=== PATIENT | male | born 1950 | race Caucasian/White ===

== ENCOUNTER 2020-12-11 11:30 | Inpatient (IN) | payer OTHER, MEDICARE ==
[~2020-12-11] VITALS: Ht 165.1 cm; Wt 73.9 kg
[2020-12-11] MEDS ORDERED: ONDANSETRON HCL 4MG/2ML INJ IV STA (11:55)
[2020-12-11] MEDS ORDERED: MORPHINE SULFATE 4 MG/ML CPJ (NOT FOR IM USE) IV STA (11:55)
[2020-12-11] MEDS ORDERED: SODIUM CHLORIDE 0.9% 1,000 ML IV ONE (12:00)
[2020-12-11 12:29] LABS: HEMATOCRIT. 41.5 % (42.0-52.0); HEMOGLOBIN. 14.1 g/dL (14.0-18.0); MEAN CORPUSCULAR HEMOGLOBIN 32.5 pg (28.0-32.0); MEAN CORPUSCULAR VOLUME 95.6 fL (80.0-94.0); MEAN PLATELET VOLUME 9.9 fl (7.4-10.4); PLATELET 72 x1000/uL (130-400); RED BLOOD CELL COUNT 4.34 mill/uL (4.7-6.1); RED CELL DISTRIBUTION WIDTH 14.1 % (11.6-14.6)
[2020-12-11] MEDS ORDERED: LORAZEPAM 2MG/ML CPJ IV ONE (12:30)
[2020-12-11 12:31] LABS: CHLORIDE 101 mEq/L (98-107)
[2020-12-11 12:33] LABS: INR 1.2
[2020-12-11 12:35] LABS: ETHANOL BLOOD 15 mg/dL
[2020-12-11 13:13] LABS: PLATELET ESTIMATE DECREASED
[2020-12-11] MEDS ORDERED: IOHEXOL-300 100 ML BOTTLE ONE (15:14)
[2020-12-11] MEDS ORDERED: ONDANSETRON HCL 4MG/2ML INJ IV PRN (15:30)
[2020-12-11] MEDS ORDERED: CLONIDINE 0.1MG TABLET PO PRN (15:30)
[2020-12-11] MEDS ORDERED: IPRATROPIUM/ALBUTEROL 0.5-3(2.5)MG/3ML NEB HHN PRN (15:30)
[2020-12-11] MEDS ORDERED: DIPHENHYDRAMINE 50MG/ML VIAL IV PRN (15:30)
[2020-12-11] MEDS ORDERED: MORPHINE SULFATE 2 MG/ML CPJ (NOT FOR IM USE) IV PRN (15:30)
[2020-12-11 15:34] LABS: CLARITY URINE CLEAR (CLEAR); COLOR URINE DARK YELLOW (YELLOW); KETONES URINE 4+ (NEGATIVE); LEUKOCYTE ESTERASE URINE TRACE (NEGATIVE); NITRITE URINE NEGATIVE (NEGATIVE); OCCULT BLOOD URINE NEGATIVE (NEGATIVE); PROTEIN URINE 1+ (NEGATIVE); SPECIFIC GRAVITY URINE 1.061 (1.005-1.030)
[2020-12-11 15:51] LABS: *AMPHETAMINES SCREEN URINE NEGATIVE (NEGATIVE); *BARBITURATES SCREEN URINE NEGATIVE (NEGATIVE); *BENZODIAZEPINES SCREEN URINE NEGATIVE (NEGATIVE); *COCAINE SCREEN URINE NEGATIVE (NEGATIVE); METHADONE URINE SCREEN NEGATIVE (NEGATIVE); OPIATES URINE SCREEN NEGATIVE (NEGATIVE)
[2020-12-11 15:52] LABS: CANNABINOID URINE SCREEN NEGATIVE (NEGATIVE); PHENCYCLIDINE URINE SCREEN NEGATIVE (NEGATIVE)
[2020-12-11] MEDS: PANTOPRAZOLE SODIUM 40 MG/VIAL IV SCH (17:44)
[2020-12-11] MEDS: SODIUM CHLORIDE 0.9% 1,000 ML IV SCH (17:44)
[2020-12-11 19:04] VITALS: BP 134/64
[2020-12-11] MEDS ORDERED: LORAZEPAM 2MG/ML CPJ IV PRN (21:15)
[2020-12-11] MEDS: CHLORDIAZEPOXIDE 25MG CAPSULE PO SCH (21:24)
[2020-12-12] MEDS: SODIUM CHLORIDE 0.9% 1,000 ML IV SCH ×2 (06:17→17:27)
[2020-12-12] MEDS: CHLORDIAZEPOXIDE 25MG CAPSULE PO SCH ×3 (06:17→21:17)
[2020-12-12 06:35] LABS: INR 1.3; PARTIAL THROMBOPLASTIN TIME 28.1 sec (23.4-31.0); PROTHROMBIN TIME 13.9 sec (9.6-11.0)
[2020-12-12 06:37] LABS: BASOPHILS % 0.2 % (0.0-2.0); EOSINOPHILS % 0.4 % (0.0-5.0); HEMATOCRIT. 36.7 % (42.0-52.0); HEMOGLOBIN. 12.4 g/dL (14.0-18.0); LYMPHOCYTES % 20.8 % (20.0-50.0); MEAN CORPUSCULAR HEMOGLOBIN 32.7 pg (28.0-32.0); MEAN CORPUSCULAR VOLUME 96.9 fL (80.0-94.0); MEAN PLATELET VOLUME 10.8 fl (7.4-10.4); MONOCYTES % 10.9 % (2.0-8.0); NEUTROPHILS % 67.7 % (40.0-76.0); RED BLOOD CELL COUNT 3.78 mill/uL (4.7-6.1); RED CELL DISTRIBUTION WIDTH 14.1 % (11.6-14.6)
[2020-12-12 07:04] LABS: HEPATITIS B SURFACE ANTIGEN NEGATIVE
[2020-12-12 07:34] LABS: HEPATITIS A AB IGM NEGATIVE (NEGATIVE)
[2020-12-12 08:00] VITALS: BP 109/72
[2020-12-12] MEDS ORDERED: LORAZEPAM 2MG/ML CPJ IV PRN (08:30)
[2020-12-12] MEDS ORDERED: ACETAMINOPHEN 325MG TABLET PO PRN (08:30)
[2020-12-12 08:52] LABS: CHLORIDE 106 mEq/L (98-107)
[2020-12-12 08:59] LABS: LDL CHOLESTEROL 62 mg/dL (5-100)
[2020-12-12] MEDS: PANTOPRAZOLE SODIUM 40 MG/VIAL IV SCH ×2 (09:00→17:26)
[2020-12-12 09:04] LABS: HDL CHOLESTEROL 75 mg/dL (40-59)
[2020-12-12] MEDS ORDERED: PROPOFOL 200MG/20ML VIAL IV ONE ×2 (09:13→09:32)
[2020-12-12] MEDS ORDERED: LIDOCAINE HCL/PF 1% 10 MG/ML 5ML VIAL ONE (09:14)
[2020-12-12] MEDS ORDERED: MIDAZOLAM HCL 2 MG/2 ML VIAL ONE (09:27)
[2020-12-12] MEDS ORDERED: OCTREOTIDE ACETATE 50 MCG/ML 1ML IV NR (09:47)
[2020-12-12] MEDS ORDERED: OCTREOTIDE ACETATE 50 MCG/ML 1ML IV SCH (10:45)
[2020-12-12] MEDS ORDERED: HYDROCODONE/ACETAMINOPHEN 5/325MG TABLET PO PRN (12:45)
[2020-12-12 13:11] VITALS: BP 122/70
[2020-12-12] MEDS: SUCRALFATE 1 G/10 ML UDC PO SCH ×3 (13:19→23:03)
[2020-12-12 13:57] LABS: PLATELET 43 x1000/uL (130-400)
[2020-12-12 20:00] VITALS: BP 133/60
[2020-12-13] VITALS: BP 129/80
[2020-12-13 04:00] VITALS: BP 129/69
[2020-12-13] MEDS: SUCRALFATE 1 G/10 ML UDC PO SCH ×3 (05:15→17:35)
[2020-12-13] MEDS: CHLORDIAZEPOXIDE 25MG CAPSULE PO SCH ×3 (05:16→21:09)
[2020-12-13 06:40] LABS: CHLORIDE 105 mEq/L (98-107)
[2020-12-13 07:07] LABS: BASOPHILS % 0.3 % (0.0-2.0); EOSINOPHILS % 1.3 % (0.0-5.0); HEMATOCRIT. 38.7 % (42.0-52.0); HEMOGLOBIN. 13.3 g/dL (14.0-18.0); LYMPHOCYTES % 17.2 % (20.0-50.0); MEAN CORPUSCULAR HEMOGLOBIN 33.3 pg (28.0-32.0); MEAN CORPUSCULAR VOLUME 96.9 fL (80.0-94.0); MEAN PLATELET VOLUME 9.1 fl (7.4-10.4); MONOCYTES % 7.6 % (2.0-8.0); NEUTROPHILS % 73.6 % (40.0-76.0); RED BLOOD CELL COUNT 3.99 mill/uL (4.7-6.1); RED CELL DISTRIBUTION WIDTH 13.6 % (11.6-14.6)
[2020-12-13 07:51] LABS: PLATELET 38 x1000/uL (130-400)
[2020-12-13 08:00] VITALS: BP 128/67
[2020-12-13] MEDS: SODIUM CHLORIDE 0.9% 1,000 ML IV SCH ×2 (08:44→21:09)
[2020-12-13] MEDS: PANTOPRAZOLE SODIUM 40 MG/VIAL IV SCH ×2 (08:44→17:35)
[2020-12-13 12:00] VITALS: BP 140/78
[2020-12-13 16:00] VITALS: BP 147/75
[2020-12-13 18:25] LABS: PLATELET ESTIMATE MARKEDLY DECREASED
[2020-12-13 20:00] VITALS: BP 132/81
[2020-12-14] VITALS: BP_SYST 122; BP_SYST 124; BP_DIAS 73; BP_DIAS 80
[2020-12-14] MEDS: SUCRALFATE 1 G/10 ML UDC PO SCH ×3 (01:31→13:23)
[2020-12-14 04:00] VITALS: BP 124/73
[2020-12-14] MEDS: OCTREOTIDE 1,000 MCG in SODIUM CHLORIDE 0.9% 100 ML IV SCH ×2 (04:52→04:54)
[2020-12-14] MEDS: CHLORDIAZEPOXIDE 25MG CAPSULE PO SCH ×2 (06:06→13:27)
[2020-12-14 06:29] LABS: BASOPHILS % 0.3 % (0.0-2.0); EOSINOPHILS % 2.2 % (0.0-5.0); HEMATOCRIT. 35.4 % (42.0-52.0); HEMOGLOBIN. 12.3 g/dL (14.0-18.0); LYMPHOCYTES % 14.9 % (20.0-50.0); MEAN CORPUSCULAR HEMOGLOBIN 33.3 pg (28.0-32.0); MEAN CORPUSCULAR VOLUME 95.7 fL (80.0-94.0); MEAN PLATELET VOLUME 9.9 fl (7.4-10.4); MONOCYTES % 8.4 % (2.0-8.0); NEUTROPHILS % 74.2 % (40.0-76.0); RED CELL DISTRIBUTION WIDTH 13.4 % (11.6-14.6)
[2020-12-14 06:36] LABS: PLATELET 40 x1000/uL (130-400)
[2020-12-14 07:30] LABS: CHLORIDE 104 mEq/L (98-107)
[2020-12-14 08:00] VITALS: BP 125/74
[2020-12-14] MEDS ORDERED: LACTULOSE 20G/30ML UDC PO SCH (09:00)
[2020-12-14] MEDS: SODIUM CHLORIDE 0.9% 1,000 ML IV SCH (10:39)
[2020-12-14] MEDS: PANTOPRAZOLE SODIUM 40 MG/VIAL IV SCH (10:39)
[2020-12-14 12:00] VITALS: BP 144/77
[2020-12-14] MEDS ORDERED: PROPRANOLOL HCL 10MG TABLET PO SCH (12:00)
[2020-12-14] MEDS ORDERED: LACT10SO7 MT (13:08)
[2020-12-14] MEDS ORDERED: PROT40 MT (13:08)
[2020-12-14] MEDS ORDERED: L25 MT (13:08)
[2020-12-14] MEDS ORDERED: THIA100T72 MT (13:08)
[2020-12-14] MEDS ORDERED: PROP10TA10 PO (13:08)
[2020-12-14] MEDS ORDERED: MULT-230 MT (13:08)
[2020-12-14] MEDS ORDERED: FOLI-43 MT (13:08)
[2020-12-14] MEDS ORDERED: SUCR1TAB30 MT (13:08)
[2020-12-14] MEDS ORDERED: POTASSIUM CHLORIDE 20MEQ TABLET SR PO NR (13:15)
[2020-12-14 14:08] VITALS: BP 144/77
== END 2020-12-14 14:40 | disposition home or self-care (01) | DRG 368 ==
LOC: ER 11:30 → 8WST 15:03 → EDBEDREQSVC 15:34 → ENRESERV 15:42 → CANRESERV 15:42 → ENRESERV 15:56
PROVIDERS: ADMIT Internal Medicine; ATTEND Internal Medicine
PROC: 06L38CZ Occlusion of Esophageal Vein with Extraluminal Device, Via Natural or Artificial Opening Endoscopic (ICD-10-PCS; principal; 2020-12-12)
PROC: 0DB78ZX Excision of Stomach, Pylorus, Via Natural or Artificial Opening Endoscopic, Diagnostic (ICD-10-PCS; 2020-12-12)
DX: I85.11 Secondary esophageal varices with bleeding (principal); K29.61 Other gastritis with bleeding; K76.6 Portal hypertension; K92.0 Hematemesis; F10.239 Alcohol dependence with withdrawal, unspecified; E87.6 Hypokalemia; I86.4 Gastric varices; K70.0 Alcoholic fatty liver; D75.89 Other specified diseases of blood and blood-forming organs; K80.20 Calculus of gallbladder without cholecystitis without obstruction; K74.60 Unspecified cirrhosis of liver; Z79.899 Other long term (current) drug therapy; Z20.822 Contact with and (suspected) exposure to COVID-19
CPT/HCPCS: 36415; 71045; 74177; 80048; 80053; 80061; 80076; 80305; 80320; 81003; 82140; 82248; 83605; 84443; 84484; 85025; 86705; 86709; 86803; 86850; 86900; 87340; 87426; 88305; 88313; 93005; 93970; 99285; C1893; C9113; J2060; J2250; J2354; J2405; J2704; J3490; J7030; J7050; Q9967; G0480